=== PATIENT | female | born 1980 ===

== ENCOUNTER → 2022-11-19 17:06 | Outpatient (CLI) | payer OTHER, SELFPAY ==
--- NOTE | 2022-11-19 17:12 | DI.RAD.S_ITS ---
PROCEDURE: XR LUMBAR SPINE MIN 4V INDICATIONS: acute on chronic r side sciatica, midline L5 tender TECHNIQUE: 5 views of the lumbar spine were acquired, including bilateral oblique views. COMPARISON: None. FINDINGS: Bones: 5 nonrib-bearing vertebrae are present. There is normal bony alignment. No vertebral body compression fractures. No suspicious bony lesions. Soft tissues: Overlying bowel gas pattern is normal. No suspicious soft tissue calcifications. Oblique images: No pars defects. IMPRESSION: Normal lumbar spine radiographs Approved by: Maxi Garcia M.D. on 11/19/2022 at 17:12
== END ==
PROVIDERS: Referring Provider Student in an Organized Health Care Education/Training Program; Visit Provider Student in an Organized Health Care Education/Training Program
DX: M54.40 Lumbago with sciatica, unspecified side (principal)
CPT/HCPCS: 72110